=== PATIENT | male | born 1930 | race African-American/Black ===

== ENCOUNTER → 2017-02-02 | Day surgery (SDC) | payer MEDICARE, MEDICAID ==
[~2017-02-02] VITALS: Ht 175.3 cm; Wt 112.9 kg
[~2017-02-02] MED LIST: ACETAMINOPHEN 325MG TABLET PO PRN; AMLO10TA80 PO; ASPI-1035 PO; ASPIRIN/SOD BICARB/CITRIC ACID 324MG TAB EFF ONE; ATROPINE SULFATE 1MG/10ML SYR IV PRN; FENTANYL CITRATE/PF 50MCG/ML 2ML VIAL ONE; HEPARIN SODIUM 1,000 UNIT/1ML VIAL IV ONE; IODIXANOL 320MG/ML 100 ML BOTTLE IV ONE; LIDOCAINE HCL 1% 20ML VIAL (Pyxis) INJ ONE; LOSA1TAB33 PO; METF500T4 PO; MIDAZOLAM HCL 2 MG/2 ML VIAL ONE; MORPHINE SULFATE 2 MG/ML CPJ (NOT FOR IM USE) IV PRN; NITR50CA4 PO; ONDANSETRON HCL 4MG/2ML VIAL IV PRN; POTA-9 PO; SIMV20TA6 PO; SITA100T6 PO; SODIUM CHLORIDE 0.45% 1,000 ML IV ONE; TIMO15DR12 EACHEYE
== END | disposition home or self-care (01) ==
LOC: CCL 09:18
PROVIDERS: ATTEND Specialist
DX: I25.10 Atherosclerotic heart disease of native coronary artery without angina pectoris (principal)
CPT/HCPCS: 82962; 93458; C1769; C1887; C1893; J1644; J2250; J3010; J3490; Q9967